=== PATIENT | male | born 1975 | race Two or more races ===

== ENCOUNTER 2019-01-05 20:03 | Emergency (ER) | payer OTHER ==
[~2019-01-05] VITALS: Ht 165.1 cm; Wt 69.4 kg
[2019-01-05 20:14] VITALS: BP 160/86; Ht 165.1 cm; Wt 69.4 kg
== END 2019-01-05 20:55 | disposition home or self-care (01) ==
LOC: ED 20:03
DX: R10.30 Lower abdominal pain, unspecified (principal)